=== PATIENT | male | born 1980 | race African-American/Black ===

== ENCOUNTER 2021-01-29 21:20 | Emergency (ER) | payer BC ==
[~2021-01-29] VITALS: Ht 188 cm; Wt 105.2 kg
[2021-01-29] MEDS ORDERED: DECADRON6 MG PO (22:10)
[2021-01-29 22:19] VITALS: BP 121/76
== END 2021-01-29 22:20 | disposition home or self-care (01) ==
LOC: M.ERS 21:20
DX: U07.1 COVID-19 (principal)